=== PATIENT | female | born 1985 | race Caucasian/White ===

== ENCOUNTER 2025-04-02 11:48 | Emergency (ER) | payer OTHER, SELFPAY ==
[2025-04-02 11:55] VITALS: BP 130/86; PULSE 59; RESP 16; TEMP 36.4; O2SAT 100; BMI 21.6
[2025-04-02 12:31] LABS: Add Manual Diff / Slide Review NO; Hematocrit 45.3 % (36-46); Hemoglobin 15.6 g/dL (12.0-16.0); Lymphocytes Absolute Auto 1100 /uL (1100-4500); Mean Corpuscular HGB Conc 34.5 % (30-36); Mean Corpuscular Hemoglobin 32.9 PG (26-34); Mean Corpuscular Volume 95.4 fL (80-100); Platelet Count 241 X10^3/uL (150-400)
--- NOTE | 2025-04-02 12:35 | ED.ABDPAIN ---
HPI - Abdominal Pain <Cori Bullock PA-C - Last Filed: 04/02/25 16:00> General Chief Complaint: Abdominal Pain Stated Complaint: Lower right side stomach pain x 5 days Time Seen by Provider: 04/02/25 12:15 Source: patient Mode of arrival: Ambulatory History of Present Illness HPI narrative: Ms. Wen is a pleasant 39-year-old female with no reported past medical history that presents to the emergency department for right lower quadrant abdominal pain x5 days. Patient states her pain started in the right lower side of her abdomen about 5 days ago however it got extremely severe over the last 24 hours. It occasionally was intermittent but over the last 24 hours it has been constant. Describes pain as a constant pressure-like sensation. She was having some bilateral flank pain a few days ago but this resolved and now she just has some residual mid back pain but does not know if this is related. She is having associated nausea and decreased appetite but no vomiting. She has not eaten anything since last night. She denies fevers but admits to feeling warm and chills last night. Denies chest pain, shortness of breath, flu-like symptoms, cough, vomiting, diarrhea, constipation, dysuria, hematuria, vaginal bleeding, vaginal discharge. She has a [employer] control. Last menstrual period ended about 1 week ago. No prior abdominal surgeries. No medication allergies. Ibuprofen and Tylenol are not helping the pain. Related Data Previous Rx's ?Medication ?Instructions ?Recorded ibuprofen 800 mg tablet 800 mg PO Q8H PRN pain #30 tabs 04/02/25 ondansetron 4 mg disintegrating 4 mg PO Q8H PRN nausea and 04/02/25 tablet vomiting #20 tabs Allergies Allergy/AdvReac Type Severity Reaction Status Date / Time No Known Drug Allergies Allergy Verified 04/02/25 11:55 Review of Systems <Cori Bullock PA-C - Last Filed: 04/02/25 16:00> Review of Systems ROS Unobtainable: All systems reviewed & are unremarkable except as noted in HPI and below Patient History <Cori Bullock PA-C - Last Filed: 04/02/25 16:00> Social History Smoking Status: Never smoker Smoking Status: Never smoker Exam <Cori Bullock PA-C - Last Filed: 04/02/25 16:00> Narrative Exam Narrative: GENERAL: 39 year old patient appears stated age. Well-developed patient, in no acute distress. HEAD: Atraumatic. Normocephalic. EYES: No scleral icterus. No injection or drainage. NECK: Trachea midline. Cervical ROM intact. CARDIOVASCULAR: Regular rate and rhythm. RESPIRATORY: ?Nonlabored respirations. ?Speaking in clear, full sentences. ?Clear to auscultation. Breath sounds equal bilaterally. No wheezes, rales, or rhonchi. ? GASTROINTESTINAL: Abdomen soft, nondistended. Bowel sounds present. There is tenderness to palpation of the right lower quadrant with guarding, no rebound. Negative Augustin's sign. Negative Rovsing sign. EXTREMITIES: No edema or joint tenderness. BACK: Nontender. No CVA tenderness bilaterally. NEURO: AOx3. ?Clear speech. ?Moves all 4 extremities appropriately. SKIN: No rash or erythema of visible areas Initial Vital Signs Initial Vital Signs: Vital Signs Temperature 97.5 F L 04/02/25 11:55 Pulse Rate 59 L 04/02/25 11:55 Respiratory Rate 16 04/02/25 11:55 Blood Pressure 130/86 04/02/25 11:55 Pulse Oximetry 100 04/02/25 11:55 Oxygen Delivery Method Room Air 04/02/25 11:55 <Alexa Mullins MD - Last Filed: 04/04/25 19:10> Initial Vital Signs Initial Vital Signs: Vital Signs Temperature 97.5 F L 04/02/25 11:55 Pulse Rate 59 L 04/02/25 11:55 Respiratory Rate 16 04/02/25 11:55 Blood Pressure 130/86 04/02/25 11:55 Pulse Oximetry 100 04/02/25 11:55 Oxygen Delivery Method Room Air 04/02/25 11:55 Course <Cori Bullock PA-C - Last Filed: 04/02/25 16:00> Orders Ordered: Discontinued Medications Sodium Chloride (Normal Saline 0.9%) 1,000 mls @ 1,000 mls/hr IV BOLUS ONE Stop: 04/02/25 13:41 Last Infusion: 04/02/25 14:45 Dose: Infused Documented By: Admin: 04/02/25 13:26 Dose: 1,000 mls/hr Documented By: RB Ketorolac Tromethamine (Ketorolac 30 Mg/Ml Vial) 15 mg IV NOW ONE Stop: 04/02/25 13:45 Last Admin: 04/02/25 13:55 Dose: 15 mg Documented By: RB Morphine Sulfate (Morphine 4 Mg/Ml Inj) 4 mg IV NOW ONE Stop: 04/02/25 12:43 Last Admin: 04/02/25 13:27 Dose: 4 mg Documented By: RB Ondansetron HCl (Ondansetron 4 Mg/2 Ml Inj) 4 mg IV NOW PRN PRN Reason: Nausea And Vomiting Ondansetron HCl (Ondansetron 4 Mg Odt) 4 mg PO NOW PRN PRN Reason: Nausea And Vomiting Ondansetron HCl (Ondansetron 4 Mg/2 Ml Inj) 4 mg IV NOW ONE Stop: 04/02/25 12:43 Last Admin: 04/02/25 13:27 Dose: 4 mg Documented By: RB Vital Signs Vital signs: Vital Signs - 8 hr 04/02/25 11:55 Temperature 97.5 F L Pulse Rate 59 L Respiratory Rate 16 Blood Pressure 130/86 Pulse Oximetry 100 Oxygen Delivery Method Room Air <Alexa Mullins MD - Last Filed: 04/04/25 19:10> Orders Ordered: Discontinued Medications Sodium Chloride (Normal Saline 0.9%) 1,000 mls @ 1,000 mls/hr IV BOLUS ONE Stop: 04/02/25 13:41 Last Infusion: 04/02/25 14:45 Dose: Infused Documented By: Admin: 04/02/25 13:26 Dose: 1,000 mls/hr Documented By: RB Ketorolac Tromethamine (Ketorolac 30 Mg/Ml Vial) 15 mg IV NOW ONE Stop: 04/02/25 13:45 Last Admin: 04/02/25 13:55 Dose: 15 mg Documented By: RB Morphine Sulfate (Morphine 4 Mg/Ml Inj) 4 mg IV NOW ONE Stop: 04/02/25 12:43 Last Admin: 04/02/25 13:27 Dose: 4 mg Documented By: RB Ondansetron HCl (Ondansetron 4 Mg/2 Ml Inj) 4 mg IV NOW PRN PRN Reason: Nausea And Vomiting Ondansetron HCl (Ondansetron 4 Mg Odt) 4 mg PO NOW PRN PRN Reason: Nausea And Vomiting Ondansetron HCl (Ondansetron 4 Mg/2 Ml Inj) 4 mg IV NOW ONE Stop: 04/02/25 12:43 Last Admin: 04/02/25 13:27 Dose: 4 mg Documented By: FLORENCE Vital Signs Vital signs: Vital Signs - 8 hr 04/02/25 11:55 Temperature 97.5 F L Pulse Rate 59 L Respiratory Rate 16 Blood Pressure 130/86 Pulse Oximetry 100 Oxygen Delivery Method Room Air MDM - Abdominal Pain <Cori Bullock PA-C - Last Filed: 04/02/25 16:00> Medical Records Medical records narrative: None available for review. Lab Data 04/02/25 12:22 04/02/25 12:22 Labs: Lab Results 04/02/25 Range/Units 12:22 WBC 4.2 L (4.5-11.0) X10^3/uL RBC 4.74 (4.0-5.2) X10^6/uL Hgb 15.6 (12.0-16.0) g/dL Hct 45.3 (36-46) % MCV 95.4 (80-100) fL MCH 32.9 (26-34) PG MCHC 34.5 (30-36) % RDW 13.7 (11.6-14.8) % Plt Count 241 (150-400) X10^3/uL Neut % (Auto) 56.1 (50-75) % Lymph % (Auto) 26.4 (25-40) % [place] % (Auto) 11.0 (3-14) % Eos % (Auto) 5.2 H (2-4) % Baso % (Auto) 1.3 (0-2) % Neut # (Auto) 2300 (8919-4450) /uL Lymph # (Auto) 1100 (6018-3021) /uL [place] # (Auto) 500 (0-900) /uL Eos # (Auto) 200 (0-450) /uL Baso # (Auto) 100 (0-100) /uL Sodium 136 L (137-145) mmol/L Potassium 4.2 (3.4-5.1) mmol/L Chloride 104 (98-107) mmol/L Carbon Dioxide 22 (22-32) mmol/L BUN 9 (7-17) mg/dL Creatinine 0.78 (0.52-1.04) mg/dL Estimated GFR > 60 (>60) mL/min BUN/Creatinine Ratio 11.5 (6-22) Glucose 90 (70-99) mg/dL Calcium 9.8 (8.4-10.2) mg/dL Total Bilirubin 0.7 (0.2-1.3) mg/dL AST 43 H (14-36) IU/L ALT 29 (<35) IU/L Alkaline Phosphatase 65 (38-126) U/L Total Protein 9.3 H (6.3-8.2) g/dL Albumin 4.8 (3.5-5.0) g/dL Globulin 4.5 H (1.7-4.1) g/dL Albumin/Globulin Ratio 1.1 (1.0-2.8) Lipase 114 (23-300) U/L Point of care testing: Point of Care Testing Test Results Negative Urine Dip Bedside Urine Glucose Negative Bedside Urine Bilirubin - Negative Bedside Urine Ketone - Negative Urine Specific Allyn 1.005 Bedside Urine Occult Blood - Negative Bedside Urine pH 6.0 Bedside Urine Protein - Negative Bedside Urine Urobilinogen - Negative Bedside Urine Nitrite - Negative Bedside Urine Leukocytes - Negative Esterase Imaging Data CT scan - abdomen/pelvis: Radiologist's Impression: PROCEDURE: CT ABDOMEN PELVIS W CON INDICATIONS: RLQ abd pain; nausea TECHNIQUE: After the administration of intravenous contrast, axial sections acquired from the lung bases to the pubic symphysis. Coronal and sagittal reformats were performed. For radiation dose reduction, the following was used: automated exposure control, adjustment of mA and/or kV according to patient size. COMPARISON: None. FINDINGS: Image quality: Diagnostic. Lower Chest: Mammoplasty implants are incidentally noted. ABDOMEN: Liver: No solid mass. Gallbladder: No radiopaque gallstones or wall thickening. Biliary ducts: No biliary dilation. Pancreas: No ductal dilation. Spleen: Size is within normal limits. Adrenal Glands: No adrenal nodules. Kidneys and Ureters: No hydronephrosis. No solid mass. No complex renal cystic lesion which requires follow up. Stomach and Bowel: In this patient with this given history, scrutiny is given to the appendix. The appendix is well seen and appears normal, as demonstrated on series 2, image 85. No focal right lower quadrant inflammatory change is seen. No dilated loops of small bowel are seen. No significant colonic abnormality is seen. Peritoneum: No abnormal intraperitoneal fluid. No free air. Ventral Wall: No significant ventral hernia. Abdominal Nodes: No retroperitoneal or mesenteric adenopathy by size criteria. Vessels: Aorta and inferior vena cava are normal in size. PELVIS: Pelvic Organs: No right adnexal pathology can be seen. Bladder: No bladder wall thickening, accounting for underdistention. Pelvic Nodes: No enlarged lymph nodes. Miscellaneous: No inguinal hernias are seen. Bones: No aggressive osseous abnormality. This patient has transitional lumbar anatomy. For the purposes of this examination, the level with the last pair of ribs is considered to be T12. By this numbering scheme the L5 level is partially sacralized, right more than left. IMPRESSION: Normal appendix. No focal right lower quadrant inflammatory change is seen. No right adnexal pathology can be seen. Additional findings: Partially sacralized L5 level Dictated by: Alli Cee M.D. on 04/02/2025 at 12:17 Approved by: Alli Cee M.D. on 04/02/2025 at 12:19 [facility] Narrative Medical decision making narrative: 39-year-old female with no reported past medical history that presents to the emergency department for right lower quadrant abdominal pain x5 days. Differential diagnosis includes but is not limited to appendicitis, ureterolithiasis, nephrolithiasis, pyelonephritis, ovarian cyst, ovarian mass, PID, ovarian torsion, constipation, colitis, diverticulitis or pancreatitis electrolyte abnormality, UTI, etc. On exam patient is in no acute distress, nontoxic-appearing, all vital signs within normal limits. Urinalysis negative and urine test negative. She has tenderness to palpation of the right lower quadrant of the abdomen, no tenderness in the remainder of the abdomen. We will obtain labs, treat with fluids Zofran morphine obtain CT abdomen pelvis. This time symptoms not consistent with ovarian torsion but we will obtain ultrasound if CT indicates the need. Labs overall reassuring. Reveals slightly decreased WBC count 4.2, normal hemoglobin hematocrit. Platelets 241. Sodium 136, potassium 4.2. BUN 9 creatinine 0.78. Glucose 90. Very slight elevation of AST at 43 with a normal ALT of 29. Normal alkaline phosphatase 65. Normal lipase 114. Imaging reveals normal appendix, no focal right lower quadrant inflammatory changes seen. No right adnexal pathology can be seen. Patient does have partially sacralized L5 level worse on the right. 1340: Patient was reassessed at the bedside by myself. Pain not resolved with morphine. Discussed all lab and imaging results. Discuss sacralization of L5, patient reports that she did break her sacrum in the past. Due to patient's persistent pain, we will obtain pelvic ultrasound to further evaluate any pelvic possible pathology, we will treat pain with Toradol as well. Patient's pain improved, ultrasound reveals small left ovarian cyst, no right-sided ovarian torsion. Discussed all lab work and imaging results with the patient. At this time recommended ibuprofen and Tylenol for pain, MiraLax to increase bowel movements she does have stool predominantly on the right side of her colon on CT,, hydration and rest. Discussed strict ED return precautions and follow up with PCP/OBGYN. Patient verbalized understanding of all information and is agreeable to the plan. She is stable for discharge home. <Alexa Mullins MD - Last Filed: 04/04/25 19:10> Lab Data Labs: Lab Results 04/02/25 Range/Units 12:22 WBC 4.2 L (4.5-11.0) X10^3/uL RBC 4.74 (4.0-5.2) X10^6/uL Hgb 15.6 (12.0-16.0) g/dL Hct 45.3 (36-46) % MCV 95.4 (80-100) fL MCH 32.9 (26-34) PG MCHC 34.5 (30-36) % RDW 13.7 (11.6-14.8) % Plt Count 241 (150-400) X10^3/uL Neut % (Auto) 56.1 (50-75) % Lymph % (Auto) 26.4 (25-40) % Flagler % (Auto) 11.0 (3-14) % Eos % (Auto) 5.2 H (2-4) % Baso % (Auto) 1.3 (0-2) % Neut # (Auto) 2300 (9500-4998) /uL Lymph # (Auto) 1100 (2058-6929) /uL Flagler # (Auto) 500 (0-900) /uL Eos # (Auto) 200 (0-450) /uL Baso # (Auto) 100 (0-100) /uL Sodium 136 L (137-145) mmol/L Potassium 4.2 (3.4-5.1) mmol/L Chloride 104 (98-107) mmol/L Carbon Dioxide 22 (22-32) mmol/L BUN 9 (7-17) mg/dL Creatinine 0.78 (0.52-1.04) mg/dL Estimated GFR > 60 (>60) mL/min BUN/Creatinine Ratio 11.5 (6-22) Glucose 90 (70-99) mg/dL Calcium 9.8 (8.4-10.2) mg/dL Total Bilirubin 0.7 (0.2-1.3) mg/dL AST 43 H (14-36) IU/L ALT 29 (<35) IU/L Alkaline Phosphatase 65 (38-126) U/L Total Protein 9.3 H (6.3-8.2) g/dL Albumin 4.8 (3.5-5.0) g/dL Globulin 4.5 H (1.7-4.1) g/dL Albumin/Globulin Ratio 1.1 (1.0-2.8) Lipase 114 (23-300) U/L Point of care testing: Point of Care Testing Test Results Negative Urine Dip Bedside Urine Glucose Negative Bedside Urine Bilirubin - Negative Bedside Urine Ketone - Negative Urine Specific Allyn 1.005 Bedside Urine Occult Blood - Negative Bedside Urine pH 6.0 Bedside Urine Protein - Negative Bedside Urine Urobilinogen - Negative Bedside Urine Nitrite - Negative Bedside Urine Leukocytes - Negative Esterase Discharge Plan Departure Patient Disposition: Home Clinical Impression: Abdominal pain, right lower quadrant, Cyst of left ovary Instructions: DI for Abdominal Pain-Adult Activity Restrictions/Additional Instructions: Dear Behzad, Thank you for coming to the emergency department. Today you were evaluated for right-sided abdominal pain. Your lab work and imaging today was overall reassuring. Your imaging did reveal a 3.1 cm left ovarian cyst, in addition to sacralization of the L5 vertebrae. At this time I would like you to rest, increase hydration, start using MiraLax to increased bowel movements, and use ibuprofen and Tylenol for pain. You have been prescribed 800 mg ibuprofen as requested in addition to Zofran which is nausea medicine. You may also use Tylenol with the medications. Please return to the ER immediately if you develop any new or worsening symptoms, severe pain, fevers, inability to have a bowel movement or persistent vomiting or any other concerns. Please follow up with your primary care doctor within the next 2-3 days for ER follow-up. (If you do not have a PCP you can call [phone]. ?to schedule an appointment with an [facility] Primary Care Provider) IF YOU DEVELOP ANY NEW OR WORSENING SYMPTOMS, RETURN TO THE ER! Please read the attached instructions, they highlight more specific treatments and interventions for you at home. Thank you for letting me participate in your care, Cori Bullock PA-C Prescriptions: New ibuprofen 800 mg tablet 800 mg PO Q8H PRN (Reason: pain) Qty: 30 0RF ondansetron 4 mg tablet,disintegrating 4 mg PO Q8H PRN (Reason: nausea and vomiting) Qty: 20 0RF Stand Alone Forms: Patient Portal/API ED Sign-out <Alexa Mullins MD - Last Filed: 04/04/25 19:10> Cosign ED Attending Cosignature Attestation: I was immediately available in the department for consultation throughout this patient's visit. Alexa Mullins MD
--- NOTE | 2025-04-02 12:42 | DI.CT.S_ITS ---
PROCEDURE: CT ABDOMEN PELVIS W CON INDICATIONS: RLQ abd pain; nausea TECHNIQUE: After the administration of intravenous contrast, axial sections acquired from the lung bases to the pubic symphysis. Coronal and sagittal reformats were performed. For radiation dose reduction, the following was used: automated exposure control, adjustment of mA and/or kV according to patient size. COMPARISON: None. FINDINGS: Image quality: Diagnostic. Lower Chest: Mammoplasty implants are incidentally noted. ABDOMEN: Liver: No solid mass. Gallbladder: No radiopaque gallstones or wall thickening. Biliary ducts: No biliary dilation. Pancreas: No ductal dilation. Spleen: Size is within normal limits. Adrenal Glands: No adrenal nodules. Kidneys and Ureters: No hydronephrosis. No solid mass. No complex renal cystic lesion which requires follow up. Stomach and Bowel: In this patient with this given history, scrutiny is given to the appendix. The appendix is well seen and appears normal, as demonstrated on series 2, image 85. No focal right lower quadrant inflammatory change is seen. No dilated loops of small bowel are seen. No significant colonic abnormality is seen. Peritoneum: No abnormal intraperitoneal fluid. No free air. Ventral Wall: No significant ventral hernia. Abdominal Nodes: No retroperitoneal or mesenteric adenopathy by size criteria. Vessels: Aorta and inferior vena cava are normal in size. PELVIS: Pelvic Organs: No right adnexal pathology can be seen. Bladder: No bladder wall thickening, accounting for underdistention. Pelvic Nodes: No enlarged lymph nodes. Miscellaneous: No inguinal hernias are seen. Bones: No aggressive osseous abnormality. This patient has transitional lumbar anatomy. For the purposes of this examination, the level with the last pair of ribs is considered to be T12. By this numbering scheme the L5 level is partially sacralized, right more than left. IMPRESSION: Normal appendix. No focal right lower quadrant inflammatory change is seen. No right adnexal pathology can be seen. Additional findings: Partially sacralized L5 level Dictated by: Alli Cee M.D. on 04/02/2025 at 12:17 Approved by: Alli Cee M.D. on 04/02/2025 at 12:19
[2025-04-02 12:44] LABS: Alanine Aminotransferase 29 IU/L (<35); Albumin 4.8 g/dL (3.5-5.0); Albumin Globulin Ratio 1.1 (1.0-2.8); Alkaline Phosphatase 65 U/L (38-126); Blood Urea Nitrogen 9 mg/dL (7-17); Calcium 9.8 mg/dL (8.4-10.2); Carbon Dioxide 22 mmol/L (22-32); Chloride 104 mmol/L (98-107); Estimated Glomerular Filt Rate > 60 mL/min (>60); Globulin 4.5 g/dL (1.7-4.1); Glucose 90 mg/dL (70-99); HEMOLYSIS 27 (0-50); Lipase 114 U/L (23-300); Potassium 4.2 mmol/L (3.4-5.1); Sodium 136 mmol/L (137-145); Total Protein 9.3 g/dL (6.3-8.2)
[2025-04-02] MEDS: SODIUM CHLORIDE 0.9% 1,000 ML 1000 ML IV (13:26)
[2025-04-02] MEDS: ONDANSETRON 4 MG/2 ML INJ IV (13:27)
[2025-04-02] MEDS: MORPHINE 4 MG/ML INJ IV (13:27)
--- NOTE | 2025-04-02 13:44 | DI.US.S_ITS ---
PROCEDURE: US PELVIC COMPLETE INDICATIONS: RLQ abd pain x 5 days; negative CT TECHNIQUE: Real-time scanning was performed of the pelvic organs, with image documentation. Additional endovaginal scanning was necessary due to incomplete visualization of the adnexal and endometrial structures by transabdominal scanning. COMPARISON: [facility], CT, CT ABDOMEN PELVIS W CON, 04/02/2025, 12:47. FINDINGS: Uterus: Uterus is anteverted and normal in size at 6.5 x 2.4 x 3.3 cm. The myometrium is homogeneous. The endometrium measures 2 mm combined thickness. Ovaries: The right ovary measures 2.5 x 1.7 x 2 cm, with a calculated ovarian volume of 4.1 cc. The left ovary measures 3.4 x 2.4 x 3 cm, with a calculated ovarian volume of 12 cc. Three, there is a cystic follicle seen that measures up to 3.1 cm. Less than 12 follicles can be seen in each ovary. No adnexal masses are seen. Normal appearing arterial waveforms are confirmed to the right ovary. Other: A mild amount of free pelvic fluid is seen, which is considered to be within physiologic limits. IMPRESSION: No imaging explanation is found for this patient's presenting symptoms. Negative for right ovarian torsion. A physiologic volume of fluid can be seen within the pelvis. Within the left ovary, there is a 3.1 cm cystic follicle seen. In a patient of this age, this is almost certainly benign. If it would be clinically appropriate, a followup pelvic ultrasound could be considered in 6 weeks to assure resolution/ improvement. We strive to produce accurate, complete, and clear reports of imaging services. To assist us in improving patient care, this report was composed using standard report templates and voice recognition software. Therefore, it may contain abnormal punctuation, insertions and/or omissions. Occasional wrong-word or sound-alike substitutions may occur. Though we review the report and make efforts to correct it, we do recommend that the report be read carefully in proper context to recognize any text inaccuracies. Dictated by: Alli Cee M.D. on 04/02/2025 at 14:32 Approved by: Alli Cee M.D. on 04/02/2025 at 14:34
[2025-04-02] MEDS: KETOROLAC 30 MG/ML VIAL 15 MG IV (13:55)
[2025-04-02 16:09] VITALS: BP 117/81; PULSE 52; RESP 18; TEMP 36.5; O2SAT 100
== END 2025-04-02 16:10 | disposition home or self-care (01) ==
PROVIDERS: Emergency Medicine; Emergency Provider Physician Assistant
DX: R10.31 Right lower quadrant pain (principal); N83.202 Unspecified ovarian cyst, left side
CPT/HCPCS: 36415; 74177; 76830; 76856; 80053; 81003; 81025; 83690; 85025; 96361; 96374; 96375; 99284; J1885; J2270; J2405; Q9967